=== PATIENT | male | born 1970 | race Caucasian/White ===

== ENCOUNTER 2023-07-25 06:47 | Outpatient (CLI) | payer SELFPAY ==
--- NOTE | 2023-07-25 07:10 | MR_ITS ---
WS: [id number] MRI LUMBAR SPINE NONCONTRAST TECHNIQUE: Sagittal T1, T2 and STIR imaging. Axial T1 and T2 imaging. CLINICAL INFORMATION: RADICULOPATHY LUMBAR REGION COMPARISON: None. FINDINGS: Mild lumbar curve. No acute compression. No high-grade central canal stenosis. Pedicle screw fixation L4-S1 with interbody fusion graft L5-S1. L1-L2: Mild facet arthropathy. Spinal canal and foramen are patent. L2-L3: Mild facet arthropathy. Spinal canal and foramen are patent. L3-L4: No significant disc bulging. Mild facet arthropathy. Spinal canal and foramen are patent. L4-L5: Pedicle screw fixation. Mild facet arthropathy. Spinal canal and foramen are patent. L5-S1: Pedicle screw fixation with interbody fusion graft. RIGHT hemilaminectomy. Moderate facet arth ropathy. Spinal canal and foramen are patent. Visualized pelvic bony structures: Normal. Paravertebral soft tissues: Normal. Shallow disc protrusions in the cervical spine at C3-C4 C4-C5 and C5-C6 IMPRESSION: 1. Mild lumbar curve. No acute compression. No high-grade central canal stenosis. 2. Pedicle screw fixation L4-S1 with interbody fusion graft L5-S1. 3. No significant spinal canal or foraminal narrowing. 4. Moderate facet arthropathy L4-L5 and L5-S1. 5. 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 This can be further evaluated with cervical spine MRI.
== END 2023-07-25 06:48 | disposition home or self-care (01) ==
LOC: RAD 06:49
PROVIDERS: PCP Family Medicine; Visit Provider Family Medicine
DX: M47.26 Other spondylosis with radiculopathy, lumbar region (principal); Z98.1 Arthrodesis status; M50.221 Other cervical disc displacement at C4-C5 level; M50.21 Other cervical disc displacement, high cervical region; M50.222 Other cervical disc displacement at C5-C6 level
CPT/HCPCS: 72148